=== PATIENT | female | born 1960 | race Caucasian/White ===

== ENCOUNTER 2022-11-26 10:16 | Outpatient (CLI) | payer BC, SELFPAY ==
--- NOTE | 2022-11-26 10:15 | CRLHL7_ITS ---
For Patients: As a result of the Century Cures Act, medical imaging exams and procedure reports are released immediately into your electronic medical record. You may view this report before your referring provider. If you have questions, please contact your health care provider. Technique: Double-contrast esophagram performed after the uneventful administration of effervescent crystals and thick barium followed by thin barium. Fluoroscopy time 0.5 minutes. Indication: DYSPHAGIA, MELENA Comparison: None. Findings: Postprocedural changes of POEM procedure. Barium tablet passes through the GE junction. There is residual dilation of the distal esophagus measuring up to 3.5 cm. Delayed esophageal clearance noted along with spontaneous reflux. No acute inflammation. Swallowing mechanism normal. No extravasation. Impression: S/p POEM procedure. Residual distention of the distal esophagus with delayed esophageal motility and spontaneous reflux. Barium tablet passes normally through the GE junction. No acute inflammation. Dictated by Mina Saunders MD @ 11/26/2022 11:16:45 AM (Electronically Signed)
== END 2022-11-26 10:17 | disposition home or self-care (01) ==
PROVIDERS: PCP Student in an Organized Health Care Education/Training Program; Visit Provider Student in an Organized Health Care Education/Training Program
DX: R13.10 Dysphagia, unspecified (principal); K21.9 Gastro-esophageal reflux disease without esophagitis; K92.1 Melena
CPT/HCPCS: 74221

== ENCOUNTER 2025-06-13 09:51 | Outpatient (CLI) | payer BC, SELFPAY ==
--- NOTE | 2025-06-13 10:15 | CRLHL7_ITS ---
For Patients: As a result of the Century Cures Act, medical imaging exams and procedure reports are released immediately into your electronic medical record. You may view this report before your referring provider. If you have questions, please contact your health care provider. Technique: Single contrast timed barium study of the esophagus with thin barium and tablet Fluoroscopy time 33 seconds. Indication: Achalasia Comparison: 11/26/2022 Findings: Post procedural changes. At 1 minute, there is mild residual barium in the distal esophagus which mostly clears at 5 minutes. Patient then ingested tablet with water and the remaining contrast cleared easily and the tablet passed through the GE junction without difficulty. Impression: No residual stenosis. Dictated by Mina Saunders MD @ 06/13/2025 11:03:17 AM (Electronically Signed)
== END 2025-06-13 09:52 | disposition home or self-care (01) ==
PROVIDERS: PCP Student in an Organized Health Care Education/Training Program; Visit Provider Student in an Organized Health Care Education/Training Program
DX: K22.0 Achalasia of cardia (principal); R13.19 Other dysphagia
CPT/HCPCS: 74220